=== PATIENT | male | born 1990 | race Caucasian/White ===

== ENCOUNTER 2016-07-26 01:40 | Emergency (ER) | payer OTHER ==
[~2016-07-26] VITALS: Ht 193 cm; Wt 86.2 kg
[2016-07-26] MEDS ORDERED: SULFACETAMIDE SOD 10% OPHT DR 15 ML BOTTLE OP ONE (02:00)
--- NOTE | 2016-07-26 02:10 | NUR ---
Patient discharged to home in stable conditon. Written and verbal after care instructions given. Patient verbalizes understanding of instructions.
[2016-07-26] MEDS ORDERED: SULFACETAMIDE SOD 10% OPHT DR 15 ML BOTTLE ONE (02:12)
== END 2016-07-26 02:10 | disposition home or self-care (01) ==
LOC: ER 01:46
DX: H10.9 Unspecified conjunctivitis (principal)
CPT/HCPCS: 99283; A4663